=== PATIENT | female | born 1975 | race American Indian/Alaskan Native ===

== ENCOUNTER 2017-07-15 19:52 | Emergency (ER) | payer OTHER ==
[2017-07-16] MEDS ORDERED: FLEXERIL PO ONE (03:24)
--- NOTE | 2017-07-16 03:24 | Emergency Department Report ---
ED Back Pain/Injury HPI - General Chief Complaint: Back Pain/Injury Stated Complaint: NECK,BACK PAIN Time Seen by Provider: 07/16/17 03:17 Source: patient Limitations: No Limitations - History of Present Illness Initial Comments: 42-year-old female past medical history hypertension, obesity presents with complaint of one week of right upper back and lower back pain. Patient states that while she was walking in a store she slipped on something slippery on the ground but did not fall states that she managed to stay upright and balance himself but strained her right upper shoulder region while balancing herself. Denies any falls denies any head trauma denies any loss of consciousness. Patient states she has had intermittent muscle spasms of her right upper shoulder/upper back region for the last week and that it is slightly worse when she rotates her shoulder. Also complains of some intermittent lower backache. Denies fevers chills dysuria or increased urinary frequency. Patient is also requesting a refill on her lisinopril hydrochlorothiazide which she says she ran out of a few days ago. Denies any chest pain abdominal pain palpitations shortness of breath blurry vision dizziness or headache. MD Complaint: back pain Onset/Timin -: week(s) Place: other (patient states that she slipped in a convenience store) Severity: moderate Severity scale (0 -10): 6 Quality: aching Improves With: immobilization Worsens With: movement Context: while lifting, turning/twisting Associated Symptoms: denies other symptoms - Related Data Previous Rx's Medication Instructions Recorded Last Taken Type Cyclobenzaprine [Flexeril] 10 mg PO TID PRN #14 tablet 07/16/17 Unknown Rx Hydrochlorothiazide [Hctz] 12.5 mg PO QDAY #30 capsule 07/16/17 Unknown Rx Lisinopril [Zestril TAB] 10 mg PO QDAY #30 tablet 07/16/17 Unknown Rx Allergies Allergy/AdvReac Type Severity Reaction Status Date / Time No Known Allergies Allergy Unverified 07/15/17 21:04 ED Review of Systems ROS: Stated complaint: NECK,BACK PAIN Other details as noted in HPI Constitutional: denies: chills, fever Eyes: denies: eye pain, eye discharge, vision change ENT: denies: ear pain, throat pain Respiratory: denies: cough, shortness of breath, wheezing Cardiovascular: denies: chest pain, palpitations Endocrine: no symptoms reported Gastrointestinal: denies: abdominal pain, nausea, diarrhea Genitourinary: denies: urgency, dysuria, discharge Musculoskeletal: as per HPI (right upper back pain/trapezius pain for one week with intermittent spasms), back pain. denies: joint swelling, arthralgia Skin: denies: rash, lesions Neurological: denies: headache, weakness, paresthesias Psychiatric: denies: anxiety, depression Hematological/Lymphatic: denies: easy bleeding, easy bruising ED Past Medical Hx - Past Medical History Previous Medical History?: Yes Hx Hypertension: Yes - Surgical History Past Surgical History?: No - Social History Smoking Status: Current Some Day Smoker Substance Use Type: Alcohol - Medications Home Medications: Home Medications Medication Instructions Recorded Confirmed Last Taken Type Cyclobenzaprine [Flexeril] 10 mg PO TID PRN #14 tablet 07/16/17 Unknown Rx Hydrochlorothiazide [Hctz] 12.5 mg PO QDAY #30 capsule 07/16/17 Unknown Rx Lisinopril [Zestril TAB] 10 mg PO QDAY #30 tablet 07/16/17 Unknown Rx ED Physical Exam - General Limitations: No Limitations General appearance: alert, in no apparent distress - Head Head exam: Present: atraumatic, normocephalic - Eye Eye exam: Present: normal appearance, PERRL, EOMI - ENT ENT exam: Present: mucous membranes moist - Neck Neck exam: Present: normal inspection, full ROM (neck flexion and extension intact, lateral rotation intact) - Respiratory Respiratory exam: Present: normal lung sounds bilaterally. Absent: respiratory distress - Cardiovascular Cardiovascular Exam: Present: regular rate, normal rhythm. Absent: systolic murmur, diastolic murmur, rubs, gallop - GI/Abdominal GI/Abdominal exam: Present: soft, normal bowel sounds - Extremities Exam Extremities exam: Present: normal inspection, full ROM (range of motion right shoulder internal/external rotation abduction and abduction intact, strength 5 out of 5, elbow and wrist and hand range of motion fully intact on clinical exam.) - Back Exam Back exam: Present: normal inspection, full ROM (back flexion and extension and lateral rotation intact), paraspinal tenderness (some tenderness adjacent to scapula with palpable muscle spasm right upper back region), other (there is no clinical midline cervical thoracic or lumbar spinal tenderness on clinical exam) - Neurological Exam Neurological exam: Present: alert, oriented X3, CN II-XII intact, normal gait - Expanded Neurological Exam Expanded Patient oriented to: Present: person, place, time Sensory exam: Upper Extremity Light Touch: Normal, Lower Extremity Light Touch: Normal Motor strength exam: RUE: 5, LUE: 5, RLE: 5, LLE: 5 Best Eye Response (Ashwin): (4) open spontaneously Best Motor Response (Ashwin): (6) obeys commands Best Verbal Response (Ashwin): (5) oriented [place] Total: 15 - Psychiatric Psychiatric exam: Present: normal affect, normal mood - Skin Skin exam: Present: warm, dry, intact, normal color. Absent: rash ED Course Vital Signs 07/15/17 07/15/17 20:32 21:00 Temperature 98.6 F 98.6 F Pulse Rate 109 H 109 H Respiratory 18 Rate Blood Pressure 149/94 149/94 O2 Sat by Pulse 99 99 Oximetry ED Medical Decision Making - Medical Decision Making A/P: Right upper trapezius muscle/upper back strain, lower back pain, asymptomatic hypertension 1-course of NSAIDs and Flexeril when necessary 2-follow-up with primary care. Refill on lisinopril and hydrochlorothiazide 3-range of motion all extremities including right upper extremity fully intact on clinical exam strength 5 out of 5 Critical care attestation.: If time is entered above; I have spent that time in minutes in the direct care of this critically ill patient, excluding procedure time. ED Disposition Clinical Impression: Trapezius muscle spasm, Encounter for medication refill Muscle strain of right upper back Qualifiers: Encounter type: initial encounter Qualified Code(s): S29.012A - Strain of muscle and tendon of back wall of thorax, initial encounter Disposition: TO HOME OR SELFCARE Is pt being admited?: No Does the pt Need Aspirin: No Condition: Stable Instructions: Muscle Strain (ED), Low Sodium Diet (ED), Hypertension (ED), Muscle Spasm (ED), Back Pain (ED) Prescriptions: Cyclobenzaprine [Flexeril] 10 mg PO TID PRN #14 tablet PRN Reason: Muscle Spasm Hydrochlorothiazide [Hctz] 12.5 mg PO QDAY #30 capsule Lisinopril [Zestril TAB] 10 mg PO QDAY #30 tablet Referrals: [facility] [Outside] - 3-5 Days [facility] [Outside] - 3-5 Days Forms: Work/School Release Form(ED) Time of Disposition: 03:19
[2017-07-16 06:03] VITALS: BP 142/84
== END 2017-07-16 03:30 | disposition home or self-care (01) ==
LOC: ED 19:52
DX: S46.911A Strain of unspecified muscle, fascia and tendon at shoulder and upper arm level, right arm, initial encounter (principal); I10 Essential (primary) hypertension; F17.200 Nicotine dependence, unspecified, uncomplicated; W01.0XXA Fall on same level from slipping, tripping and stumbling without subsequent striking against object, initial encounter; Y93.89 Activity, other specified; Y92.89 Other specified places as the place of occurrence of the external cause; Y99.8 Other external cause status
CPT/HCPCS: 99282